=== PATIENT | male | born 1960 | race African-American/Black ===

== ENCOUNTER → 2020-10-28 | Outpatient (CLI) | payer OTHER ==
[~2020-10-28] MED LIST: DOXY100T PO; METF500T PO
[2020-10-28 12:35] LABS: BASOPHILS % (AUTO) 1 % (0-1); EOSINOPHILS % (AUTO) 2 % (1-7); LYMPHOCYTES % (AUTO) 35 % (22-44); MEAN CORPUSCULAR HEMOGLOBIN 22.9 pg (27.5-34.5); MEAN CORPUSCULAR HGB CONC 31.5 g/dL (33.2-36.2); MEAN PLATELET VOLUME 8.1 fL (7.4-10.4); MONOCYTES % (AUTO) 7 % (2-9); NEUTROPHILS % (AUTO) 56 % (42-75); PLATELET COUNT 455 x10^3/uL (130-400); RED BLOOD COUNT 5.59 x10^6/uL (4.38-5.82); RED CELL DISTRIBUTION WIDTH 17.6 % (9.4-14.8)
[2020-10-28 12:44] LABS: INTERNATIONAL NORMALIZED RATIO 1.19 (0.93-1.1); PROTHROMBIN TIME 12.6 Seconds (9.6-11.5)
[2020-10-28 13:26] LABS: ALBUMIN 3.4 g/dL (3.4-5.0); ANION GAP 9 mmol/L (5-15); CALCIUM 9.5 mg/dL (8.5-10.1); CHLORIDE 100 mmol/L (98-107)
[2020-10-28 13:30] LABS: % IRON SATURATION 8 % (20-55); ALANINE AMINOTRANSFERASE 38 U/L (12-78); ALKALINE PHOSPHATASE 169 U/L (45-117); BILIRUBIN,TOTAL 0.4 mg/dL (0.2-1.0); CREATININE 0.65 mg/dL (0.7-1.3); IRON LEVEL 25 mcg/dL (65-175); TOTAL IRON BINDING CAPACITY 296 mcg/dL (250-450); TOTAL PROTEIN 8.9 g/dL (6.4-8.2)
== END | disposition home or self-care (01) ==
LOC: LAB 11:47
PROVIDERS: ATTEND Internal Medicine
DX: K21.9 Gastro-esophageal reflux disease without esophagitis (principal); R09.02 Hypoxemia; R07.9 Chest pain, unspecified; R74.8 Abnormal levels of other serum enzymes; R10.11 Right upper quadrant pain; R11.0 Nausea
CPT/HCPCS: 36415; 80053; 82103; 82104; 82390; 82728; 82784; 82785; 83516; 83540; 83550; 83690; 84443; 85025; 85610; 86038; 86704; 86706; 86708; 86709; 86803; 87340

== ENCOUNTER 2020-11-14 15:25 | Outpatient (CLI) | payer OTHER ==
[2020-11-14] MEDS ORDERED: GADOTERATE 10 MMOL/20 ML VIAL ONE (16:59)
== END 2020-11-14 23:59 | disposition home or self-care (01) ==
LOC: RAD 15:25 → EDSTATUS 16:00 → RAD 23:59
PROVIDERS: ATTEND Internal Medicine
DX: K43.9 Ventral hernia without obstruction or gangrene (principal); R18.8 Other ascites; J90 Pleural effusion, not elsewhere classified; I51.7 Cardiomegaly; N28.1 Cyst of kidney, acquired; R59.0 Localized enlarged lymph nodes; R93.89 Abnormal findings on diagnostic imaging of other specified body structures; R10.11 Right upper quadrant pain
CPT/HCPCS: 74183; A9575